=== PATIENT | male | born 2005 | race Caucasian/White ===

== ENCOUNTER 2025-03-01 18:29 | Emergency (ER) | payer OTHER ==
[~2025-03-01] VITALS: Ht 182.9 cm; Wt 81.9 kg
[2025-03-02] MEDS ORDERED: NAPR-837 PO (02:50)
[2025-03-02 03:00] VITALS: BP 124/56; TEMP 98.5; O2SAT 97
[2025-03-02] MEDS: NAPROXEN 250 MG TAB PO ONE (03:02)
== END 2025-03-02 03:12 | disposition home or self-care (01) ==
LOC: M ED 18:29
DX: Z04.1 Encounter for examination and observation following transport accident (principal); F17.290 Nicotine dependence, other tobacco product, uncomplicated